=== PATIENT | female | born 1955 | race African-American/Black ===

== ENCOUNTER 2019-10-02 00:26 | Inpatient (IN) | payer MEDICAID ==
[~2019-10-02] VITALS: Ht 157.5 cm; Wt 76.7 kg
[2019-10-02] MEDS ORDERED: NITROGLYCERIN 50MG PREMIX 250 ML IV ONE (00:40)
[2019-10-02] MEDS ORDERED: ONDANSETRON HCL 4MG/2ML INJ IV STA (00:40)
[2019-10-02] MEDS ORDERED: FUROSEMIDE 40MG/4ML VIAL IV ONE (00:45)
[2019-10-02 01:11] LABS: BG BASE EXCESS -10.3 mmol/L (-2.0-2.0); BG CARBOXYHEMOGLOBIN 0.5 % (0.5-1.5); BG DEOXYHEMOGLOBIN 7.6 % (0.0-5.0); BG FRACTION INSPIRED OXYGEN 100; BG HCO3 ACT 16.1 mmol/L (22.0-26.0); BG METHEMOGLOBIN 0.3 % (0.0-1.5); BG OXYGEN SATURATION 92.3 % (92.0-98.5); BG OXYHEMOGLOBIN 91.6 % (94.0-97.0); BG PCO2 37.2 mmHg (35.0-45.0); BG PH 7.253 (7.350-7.450); BG PO2 71.1 mmHg (75.0-100.0); BG SAMPLE SITE RIGHT RADIAL; BG TOTAL HEMOGLOBIN 10.1 g/dL (12.0-18.0); BG VENT MODE MASK - NRB
[2019-10-02 01:21] LABS: BASOPHILS % 0.3 % (0.0-2.0); EOSINOPHILS % 2.4 % (0.0-5.0); HEMATOCRIT. 31.7 % (36.0-48.0); HEMOGLOBIN. 10.9 g/dL (12.0-16.0); LYMPHOCYTES % 22.8 % (20.0-50.0); MEAN CORPUSCULAR HEMOGLOBIN 31.8 pg (28.0-32.0); MEAN CORPUSCULAR VOLUME 92.6 fL (81.0-99.0); MEAN PLATELET VOLUME 8.4 fl (7.4-10.4); MONOCYTES % 6.7 % (2.0-8.0); NEUTROPHILS % 67.8 % (40.0-76.0); PLATELET 435 x1000/uL (130-400); RED BLOOD CELL COUNT 3.43 mill/uL (4.2-5.4); RED CELL DISTRIBUTION WIDTH 14.5 % (11.6-14.6)
[2019-10-02 01:34] LABS: CHLORIDE 111 mEq/L (98-107)
[2019-10-02 01:35] LABS: INR 0.9; PROTHROMBIN TIME 9.9 sec (9.6-11.0)
[2019-10-02] MEDS ORDERED: ACETAMINOPHEN 325MG TABLET PO PRN ×2 (07:15)
[2019-10-02] MEDS ORDERED: DEXTROSE 50% WATER 50ML SYRINGE IV PRN (07:15)
[2019-10-02] MEDS ORDERED: DOCUSATE SODIUM 100MG CAPSULE PO PRN (07:15)
[2019-10-02] MEDS ORDERED: NITROGLYCERIN 0.4MG TABLET SL SL PRN (07:15)
[2019-10-02] MEDS ORDERED: GUAIFENESIN 200MG/10ML SUGAR FREE UDC PO PRN (07:15)
[2019-10-02] MEDS ORDERED: MAGNESIUM/ALUMINUM HYDROXIDE/SIMETHICONE 30ML UDC PO PRN (07:15)
[2019-10-02] MEDS ORDERED: ONDANSETRON HCL 4MG/2ML INJ IV PRN (07:15)
[2019-10-02] MEDS ORDERED: IPRATROPIUM/ALBUTEROL 0.5-3(2.5)MG/3ML NEB ORI PRN (07:15)
[2019-10-02] MEDS ORDERED: CLONIDINE 0.1MG TABLET PO PRN (07:15)
[2019-10-02] MEDS ORDERED: ENOXAPARIN 40MG/0.4ML SYR SUBCUT SCH ×2 (07:15→20:00)
[2019-10-02] MEDS ORDERED: METOLAZONE 10MG TABLET PO SCH (08:00)
[2019-10-02] MEDS ORDERED: CEFTRIAXONE 1 G PREMIX 50 ML IV SCH (08:00)
[2019-10-02] MEDS ORDERED: FUROSEMIDE 40MG/4ML VIAL IVP SCH (08:00)
[2019-10-02] MEDS ORDERED: AZITHROMYCIN 500 MG in DEXT 5% WATER 250 ML IV SCH (08:00)
[2019-10-02] MEDS: ASPIRIN 325MG EC TABLET PO SCH (08:36)
[2019-10-02] MEDS: METOPROLOL TARTRATE 25MG TABLET PO SCH ×2 (08:36→21:47)
[2019-10-02] MEDS: AMLODIPINE 10MG TABLET PO SCH (08:37)
[2019-10-02] MEDS: ZINC SULFATE 220 MG ( 50 ) CAPSULE PO SCH (08:37)
[2019-10-02] MEDS: FAMOTIDINE 20MG TABLET PO SCH (08:37)
[2019-10-02] MEDS ORDERED: ENOXAPARIN 30MG/0.3ML SYR SUBCUT SCH (09:00)
[2019-10-02] MEDS ORDERED: FAMOTIDINE 20MG TABLET PO SCH (09:00)
[2019-10-02] MEDS: SEVELAMER CARBONATE 800 MG TABLET PO SCH ×3 (09:23→17:51)
[2019-10-02] MEDS: BLOOD SUGAR DIAGNOSTIC STRIP TEST SCH ×4 (09:23→21:34)
[2019-10-02] MEDS: GUAIFENESIN/DM 600MG/30MG ER TAB 12HR PO SCH ×2 (09:23→21:46)
[2019-10-02] MEDS: ASCORBIC ACID 500 MG TABLET PO SCH ×2 (09:23→21:46)
[2019-10-02] MEDS: INSULIN LISPRO 100 UNITS/ML SUBCUT SCH ×4 (09:28→21:52)
[2019-10-02] MEDS: NITROGLYCERIN OINT 1GM/INCH UDPKT TD SCH ×4 (09:40→21:55)
[2019-10-02] MEDS ORDERED: SODIUM BICARBONATE 8.4% 1 MEQ/ML 50ML SYR IV ONE (12:45)
[2019-10-02] MEDS ORDERED: ASPI-1160 MT (15:00)
[2019-10-02] MEDS ORDERED: ATOR20TA65 PO (15:02)
[2019-10-02 15:08] VITALS: BP 170/84
[2019-10-02] MEDS ORDERED: PNEUMOCOCCAL 23-VAL P-SAC VAC 0.5 ML IM ONE (15:15)
[2019-10-02] MEDS: HYDRALAZINE HCL 50MG TABLET PO SCH ×2 (15:39→21:48)
[2019-10-02] MEDS: CITRIC ACID/SODIUM CITRATE SOLN 30ML UDC PO SCH ×2 (15:39→17:00)
[2019-10-02 16:00] VITALS: BP 133/67
[2019-10-02] MEDS: FUROSEMIDE 100MG/10ML VIAL IVP SCH ×2 (17:51→21:48)
[2019-10-02 18:03] LABS: CREATINE KINASE MB FRACTION 4.3 ng/mL (0.5-3.6)
[2019-10-02 20:00] VITALS: BP 133/60
[2019-10-02] MEDS ORDERED: ZOLPIDEM TARTRATE 5MG TABLET PO PRN (21:00)
[2019-10-02 23:46] LABS: CREATINE KINASE MB FRACTION 3.1 ng/mL (0.5-3.6)
[2019-10-03] VITALS: BP 168/59
[2019-10-03 04:00] VITALS: BP 122/59
[2019-10-03 05:21] LABS: BASOPHILS % 0.4 % (0.0-2.0); EOSINOPHILS % 2.7 % (0.0-5.0); HEMATOCRIT. 23.5 % (36.0-48.0); HEMOGLOBIN. 8.1 g/dL (12.0-16.0); LYMPHOCYTES % 21.6 % (20.0-50.0); MEAN CORPUSCULAR HEMOGLOBIN 31.2 pg (28.0-32.0); MEAN CORPUSCULAR VOLUME 90.8 fL (81.0-99.0); MONOCYTES % 7.2 % (2.0-8.0); NEUTROPHILS % 68.1 % (40.0-76.0); PLATELET 266 x1000/uL (130-400); RED BLOOD CELL COUNT 2.59 mill/uL (4.2-5.4)
[2019-10-03 05:35] LABS: PHOSPHORUS 6.6 mg/dL (2.5-4.9)
[2019-10-03 05:52] LABS: HEPATITIS B SURFACE AB 14.2 mIU/mL
[2019-10-03] MEDS: HYDRALAZINE HCL 50MG TABLET PO SCH ×2 (05:59→15:20)
[2019-10-03 06:02] LABS: HEPATITIS B SURFACE ANTIGEN NEGATIVE
[2019-10-03] MEDS: BLOOD SUGAR DIAGNOSTIC STRIP TEST SCH ×3 (06:41→16:55)
[2019-10-03] MEDS: INSULIN LISPRO 100 UNITS/ML SUBCUT SCH ×3 (07:41→16:55)
[2019-10-03 08:00] VITALS: BP 152/53
[2019-10-03] MEDS ORDERED: AZITHROMYCIN 500 MG in DEXT 5% WATER 250 ML IV SCH (08:00)
[2019-10-03] MEDS: FUROSEMIDE 100MG/10ML VIAL IVP SCH ×2 (09:00→09:27)
[2019-10-03] MEDS ORDERED: ENOXAPARIN 80MG/0.8ML SYR SUBCUT SCH (09:00)
[2019-10-03] MEDS ORDERED: CEFTRIAXONE 1 G PREMIX 50 ML IV SCH (09:00)
[2019-10-03] MEDS ORDERED: CEFTRIAXONE 1,000 MG in DEXTROSE 5% WATER 50 ML IV SCH (09:00)
[2019-10-03] MEDS: FAMOTIDINE 20MG TABLET PO SCH (09:27)
[2019-10-03] MEDS: ASPIRIN 325MG EC TABLET PO SCH (09:27)
[2019-10-03] MEDS: CITRIC ACID/SODIUM CITRATE SOLN 30ML UDC PO SCH ×4 (09:27→17:04)
[2019-10-03] MEDS: ASCORBIC ACID 500 MG TABLET PO SCH (09:27)
[2019-10-03] MEDS: GUAIFENESIN/DM 600MG/30MG ER TAB 12HR PO SCH (09:27)
[2019-10-03] MEDS: ZINC SULFATE 220 MG ( 50 ) CAPSULE PO SCH (09:28)
[2019-10-03] MEDS: AMLODIPINE 10MG TABLET PO SCH (09:34)
[2019-10-03] MEDS: METOPROLOL TARTRATE 25MG TABLET PO SCH (09:34)
[2019-10-03] MEDS: SEVELAMER CARBONATE 800 MG TABLET PO SCH ×4 (09:34→17:15)
[2019-10-03] MEDS: NITROGLYCERIN OINT 1GM/INCH UDPKT TD SCH ×2 (13:15→17:16)
[2019-10-03 13:40] VITALS: BP 150/78
[2019-10-03 15:59] LABS: T4 FREE 0.75 ng/dL (0.76-1.46)
[2019-10-03 16:08] LABS: BASOPHILS % 0.4 % (0.0-2.0); EOSINOPHILS % 2.7 % (0.0-5.0); HEMATOCRIT. 25.6 % (36.0-48.0); HEMOGLOBIN. 8.9 g/dL (12.0-16.0); LYMPHOCYTES % 15.7 % (20.0-50.0); MEAN CORPUSCULAR HEMOGLOBIN 31.5 pg (28.0-32.0); MEAN CORPUSCULAR VOLUME 90.9 fL (81.0-99.0); MEAN PLATELET VOLUME 8.1 fl (7.4-10.4); MONOCYTES % 5.3 % (2.0-8.0); NEUTROPHILS % 75.9 % (40.0-76.0); PLATELET 296 x1000/uL (130-400); RED BLOOD CELL COUNT 2.82 mill/uL (4.2-5.4); RED CELL DISTRIBUTION WIDTH 13.8 % (11.6-14.6)
[2019-10-03 18:54] VITALS: BP 138/66
[2019-10-03] MEDS ORDERED: LOSARTAN POTASSIUM 25 MG TABLET PO SCH (21:00)
[2019-10-03] MEDS ORDERED: ATORVASTATIN CALCIUM 20MG TABLET PO SCH (21:00)
[2019-10-04] MEDS ORDERED: AZITHROMYCIN 250 MG in DEXT 5% WATER 250 ML IV SCH (08:00)
[2019-10-04] MEDS ORDERED: NEBIVOLOL HCL 5 MG TABLET PO SCH (09:00)
== END 2019-10-03 20:30 | disposition short-term general hospital (02) | DRG 190 ==
LOC: ER 00:26 → EDBEDREQTM 03:30 → EDBEDREQ 03:30 → 7WST 04:03 → EDBEDREQ 04:04 → EDBEDREQSVC 12:26 → ENRESERV 12:39 → 6WST 10-03 13:36
PROVIDERS: ADMIT Internal Medicine; ATTEND Internal Medicine
DX: I21.4 Non-ST elevation (NSTEMI) myocardial infarction (principal); I63.9 Cerebral infarction, unspecified; E43 Unspecified severe protein-calorie malnutrition; J96.01 Acute respiratory failure with hypoxia; I13.2 Hypertensive heart and chronic kidney disease with heart failure and with stage 5 chronic kidney disease, or end stage renal disease; N17.0 Acute kidney failure with tubular necrosis; D63.8 Anemia in other chronic diseases classified elsewhere; E11.22 Type 2 diabetes mellitus with diabetic chronic kidney disease; E66.9 Obesity, unspecified; E78.5 Hyperlipidemia, unspecified; E87.2 Acidosis; I16.1 Hypertensive emergency; N18.5 Chronic kidney disease, stage 5; I50.43 Acute on chronic combined systolic (congestive) and diastolic (congestive) heart failure; N18.9 Chronic kidney disease, unspecified; Z72.0 Tobacco use; Z82.49 Family history of ischemic heart disease and other diseases of the circulatory system; Z86.73 Personal history of transient ischemic attack (TIA), and cerebral infarction without residual deficits; Z99.2 Dependence on renal dialysis; Z79.84 Long term (current) use of oral hypoglycemic drugs
CPT/HCPCS: 36415; 36600; 71045; 80048; 80053; 80061; 82375; 82550; 82553; 82805; 82962; 83036; 83540; 83550; 83605; 83735; 83880; 84100; 84439; 84443; 84484; 85025; 85044; 86705; 86706; 86803; 87340; 87635; 93005; 93306; 99291; J0456; J0696; J1650; J1815; J1940; J2405; J3490; J7060

== ENCOUNTER 2021-06-13 12:47 | Inpatient (IN) | payer OTHER, MEDICAID ==
[~2021-06-13] VITALS: Ht 157.5 cm; Wt 57.2 kg
[~2021-06-13 12:47] MED LIST: ASPI-1160 MT; ATOR20TA65 PO
[2021-06-13 13:54] LABS: BASOPHILS % 0.3 % (0.0-2.0); EOSINOPHILS % 0.2 % (0.0-5.0); HEMATOCRIT. 36.2 % (36.0-48.0); HEMOGLOBIN. 12.4 g/dL (12.0-16.0); LYMPHOCYTES % 17.2 % (20.0-50.0); MEAN CORPUSCULAR HEMOGLOBIN 32.6 pg (28.0-32.0); MEAN CORPUSCULAR VOLUME 95.3 fL (81.0-99.0); MEAN PLATELET VOLUME 7.6 fl (7.4-10.4); MONOCYTES % 5.8 % (2.0-8.0); NEUTROPHILS % 76.5 % (40.0-76.0); PLATELET 205 x1000/uL (130-400); RED CELL DISTRIBUTION WIDTH 16.6 % (11.6-14.6)
[2021-06-13 13:58] LABS: CHLORIDE 103 mEq/L (98-107)
[2021-06-13 14:02] LABS: ETHANOL BLOOD < 10 mg/dL
[2021-06-13] MEDS ORDERED: IOHEXOL-350 100 ML BOTTLE ONE (14:53)
[2021-06-13] MEDS ORDERED: ENOXAPARIN 40MG/0.4ML SYR SUBCUT SCH (17:45)
[2021-06-13] MEDS ORDERED: DEXTROSE 50% WATER 50ML SYRINGE IV PRN (17:45)
[2021-06-13] MEDS ORDERED: DOCUSATE SODIUM 100MG CAPSULE PO PRN (17:45)
[2021-06-13] MEDS ORDERED: ONDANSETRON HCL 4MG/2ML INJ IV PRN (17:45)
[2021-06-13] MEDS ORDERED: GUAIFENESIN 200MG/10ML SUGAR FREE UDC PO PRN (17:45)
[2021-06-13] MEDS ORDERED: ACETAMINOPHEN 325MG TABLET PO PRN ×2 (17:45)
[2021-06-13] MEDS ORDERED: IPRATROPIUM/ALBUTEROL 0.5-3(2.5)MG/3ML NEB NEB PRN (17:45)
[2021-06-13] MEDS ORDERED: CLONIDINE 0.1MG TABLET PO PRN (17:45)
[2021-06-13] MEDS ORDERED: NITROGLYCERIN 0.4MG TABLET SL SL PRN (17:45)
[2021-06-13] MEDS ORDERED: ZOLPIDEM TARTRATE 5MG TABLET PO PRN (17:45)
[2021-06-13] MEDS ORDERED: MAGNESIUM/ALUMINUM HYDROXIDE/SIMETHICONE 30ML UDC PO PRN (17:45)
[2021-06-13] MEDS ORDERED: DIPHENHYDRAMINE 50MG/ML VIAL IV PRN (17:45)
[2021-06-13 19:02] LABS: FOLIC ACID (FOLATE) SERUM 12.4 ng/mL (>5.38)
[2021-06-13] MEDS ORDERED: ENOXAPARIN 30MG/0.3ML SYR SUBCUT SCH (20:00)
[2021-06-13] MEDS: INSULIN LISPRO 100 UNITS/ML SUBCUT SCH ×2 (20:40→21:00)
[2021-06-13] MEDS: BLOOD SUGAR DIAGNOSTIC STRIP TEST SCH (20:40)
[2021-06-13 22:22] LABS: CREATINE KINASE 79 IU/L (26-192)
[2021-06-13 22:23] LABS: CREATINE KINASE MB FRACTION 1.3 ng/mL (0.5-3.6)
[2021-06-14 05:41] LABS: BASOPHILS % 0.4 % (0.0-2.0); CHLORIDE 102 mEq/L (98-107); EOSINOPHILS % 0.2 % (0.0-5.0); HEMATOCRIT. 36.7 % (36.0-48.0); HEMOGLOBIN. 12.3 g/dL (12.0-16.0); MEAN CORPUSCULAR HEMOGLOBIN 31.9 pg (28.0-32.0); MEAN CORPUSCULAR VOLUME 94.8 fL (81.0-99.0); MEAN PLATELET VOLUME 7.8 fl (7.4-10.4); MONOCYTES % 8.5 % (2.0-8.0); NEUTROPHILS % 70.9 % (40.0-76.0); PLATELET 208 x1000/uL (130-400); RED BLOOD CELL COUNT 3.87 mill/uL (4.2-5.4)
[2021-06-14 05:47] LABS: PHOSPHORUS 3.2 mg/dL (2.5-4.9)
[2021-06-14 05:50] LABS: CREATINE KINASE 71 IU/L (26-192)
[2021-06-14 05:52] LABS: CREATINE KINASE MB FRACTION 1.7 ng/mL (0.5-3.6)
[2021-06-14] MEDS: BLOOD SUGAR DIAGNOSTIC STRIP TEST SCH ×2 (06:49→11:30)
[2021-06-14] MEDS: INSULIN LISPRO 100 UNITS/ML SUBCUT SCH ×2 (06:57→12:00)
[2021-06-14] MEDS ORDERED: ASPIRIN 325MG EC TABLET PO SCH (09:00)
[2021-06-14] MEDS: SEVELAMER CARBONATE 800 MG TABLET PO SCH ×2 (09:26→14:22)
[2021-06-14 16:00] VITALS: BP 130/73
[2021-06-14 18:06] LABS: HEPATITIS B SURFACE ANTIGEN NEGATIVE
== END 2021-06-14 18:14 | disposition left against medical advice (07) | DRG 64 ==
LOC: ER 12:47 → MICUSO 16:56 → EDBEDREQSVC 17:00 → EDBEDREQ 17:00 → EDBEDREQTM 17:00
PROVIDERS: ADMIT Internal Medicine; ATTEND Internal Medicine
DX: I63.9 Cerebral infarction, unspecified (principal); N18.6 End stage renal disease; I13.2 Hypertensive heart and chronic kidney disease with heart failure and with stage 5 chronic kidney disease, or end stage renal disease; E87.1 Hypo-osmolality and hyponatremia; G81.94 Hemiplegia, unspecified affecting left nondominant side; I50.9 Heart failure, unspecified; Z20.822 Contact with and (suspected) exposure to COVID-19; E11.22 Type 2 diabetes mellitus with diabetic chronic kidney disease; I65.23 Occlusion and stenosis of bilateral carotid arteries; D64.9 Anemia, unspecified; Z99.2 Dependence on renal dialysis; Z82.49 Family history of ischemic heart disease and other diseases of the circulatory system; Z79.82 Long term (current) use of aspirin; Z79.899 Other long term (current) drug therapy
CPT/HCPCS: 36415; 70496; 70498; 70544; 70553; 71045; 80053; 80320; 82550; 82553; 82607; 82746; 82962; 83540; 83550; 83735; 84100; 84443; 84484; 85025; 86705; 86709; 86803; 87340; 87426; 93005; 93880; 99291; J1650; Q9967; G0480

== ENCOUNTER 2025-03-15 10:49 | Emergency (ER) | payer MEDICAID, OTHER ==
[~2025-03-15] VITALS: Ht 165.1 cm; Wt 55.0 kg
[2025-03-15 10:54] VITALS: BP 101/64; PULSE 92; RESP 18; TEMP 37.1; O2SAT 99
== END 2025-03-15 12:36 | disposition left against medical advice (07) ==
LOC: ER 10:57
DX: M25.561 Pain in right knee (principal)
CPT/HCPCS: 99281